=== PATIENT | male | born 1990 | race Caucasian/White ===

== ENCOUNTER 2022-04-22 14:06 | Emergency (ER) | payer MEDICAID ==
[~2022-04-22] VITALS: Ht 175.3 cm; Wt 72.6 kg
[2022-04-22 14:08] VITALS: BP_SYST 133
[2022-04-22] MEDS ORDERED: ONDANSETRON 4 MG ODT TAB PO ONE (15:00)
--- NOTE | 2022-04-22 15:15 | NUR ---
Patient to ER bed CH2 to gown for evaluation. Side rails up. Report given to LAVONNE MOONEY.
--- NOTE | 2022-04-22 15:16 | NUR ---
PATIENT CAME FROM HOME C/O HEADACHE, NAUSEA/VOMITING. PT HAS HX OF CIRRHOSIS AND ETOH ABUSE. DENIES USE OF TOBACCO OR OTHER DRUGS. PT DENIES ADDITIONAL MEDICAL/SURGICAL HX. 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 PT IS UNAWARE OF WHETHER HE LOST CONSCIOUNESS BUT WAS CONCERNED ABOUT THE N/V FOLLOWING FALL. VSS, CARE TO BE GIVEN ORDERED BY PROVIDER.
[2022-04-22 15:29] LABS: BASOPHILS % (AUTO) 0.1 % (0.0-2.0); HEMATOCRIT 41.1 % (36-54); HEMOGLOBIN 14.2 g/dL (14.0-18.0); LYMPHOCYTES # (AUTO) 0.4 K/uL (1.0-5.5); LYMPHOCYTES % (AUTO) 3.9 % (20.5-51.5); MEAN CORPUSCULAR HEMOGLOBIN 32 pg (27-31); MEAN CORPUSCULAR HGB CONC 35 % (32-36); MEAN CORPUSCULAR VOLUME 92 fL (79.0-98.0); MONOCYTES # (AUTO) 0.7 K/uL (0.0-1.0); MONOCYTES % (AUTO) 6.8 % (1.7-9.3); NEUTROPHILS # (AUTO) 9.6 K/uL (1.8-7.7); NEUTROPHILS % (AUTO) 89.2 % (40.0-70.0); PLATELET COUNT (AUTO) 54 K/uL (130-430); RED BLOOD CELL COUNT(AUTO) 4.48 MIL/uL (4.2-6.2); RED CELL DISTRIBUTION WIDTH 16.5 % (9.0-15.0); WHITE BLOOD COUNT (AUTO) 10.8 K/uL (4.8-10.8)
[2022-04-22 15:47] LABS: CALCIUM 11.5 mg/dL (8.4-11.0); CHLORIDE 87 mmol/L (98-107); CREATININE 1.94 mg/dL (0.55-1.30); GLUCOSE 167 mg/dL (70-99); UREA NITROGEN, BLOOD 29 mg/dL (8-21)
[2022-04-22 15:54] LABS: ACETONE, SERUM NEGATIVE (NEGATIVE)
[2022-04-22 16:04] LABS: ALANINE AMINOTRANSFERASE 168 U/L (12-78); ALBUMIN 4.9 g/dL (3.4-4.8); AMYLASE 219 U/L (0-100); ANION GAP 13 (5-15); ASPARTATE AMINOTRANSFERASE 218 U/L (10-37); TOTAL BILIRUBIN 4.1 mg/dL (0.0-1.0)
[2022-04-22 16:16] LABS: GFR AFRICAN AMERICAN 52 mL/min (>90)
[2022-04-22 16:17] LABS: ALCOHOL, BLOOD < 3 mg/dL (<10)
--- NOTE | 2022-04-22 16:22 | NUR ---
MD DR. MATHEWS AT BEDSIDE EXAMINING PATIENT.
[2022-04-22 16:37] LABS: LIPASE 2571 U/L (73-393)
[2022-04-22] MEDS ORDERED: POTASSIUM CHLORIDE 20 MEQ/PKT PACKET PO ONE (16:45)
--- NOTE | 2022-04-22 17:17 | NUR ---
Patient given written and verbal discharge instructions and verbalizes understanding. ER DR. BISI RIBERA discussed with patient the results and treatment provided. Patient in stable condition. ID arm band removed. IV catheter removed intact and dressing applied, no active bleeding. Rx of ZOFRAN, ATIVAN given. Patient educated on pain management and to follow up with PMD. Pain Scale 4/10. Opportunity for questions provided and answered. Medication side effect fact sheet provided.
== END 2022-04-22 17:14 | disposition home or self-care (01) ==
LOC: SED 14:06
DX: S00.83XA Contusion of other part of head, initial encounter (principal); R11.2 Nausea with vomiting, unspecified; K70.9 Alcoholic liver disease, unspecified; Z79.899 Other long term (current) drug therapy; X58.XXXA Exposure to other specified factors, initial encounter; Y93.89 Activity, other specified; Y92.89 Other specified places as the place of occurrence of the external cause; Y99.8 Other external cause status
CPT/HCPCS: 99284; 70450; 80053; 82009; 82150; 83690; 85025; 36415; 72125; 76376; 83605; G0482; Q0162